=== PATIENT | female | born 1960 | race Hispanic/Latino ===

== ENCOUNTER 2021-10-11 15:23 | Emergency (ER) | payer SELFPAY ==
[~2021-10-11] VITALS: Ht 154.9 cm; Wt 83.9 kg
== END 2021-10-11 16:00 | disposition home or self-care (01) ==
LOC: ER 15:30
DX: J39.2 Other diseases of pharynx (principal); I25.10 Atherosclerotic heart disease of native coronary artery without angina pectoris; I25.2 Old myocardial infarction; Z95.1 Presence of aortocoronary bypass graft
CPT/HCPCS: 99282